=== PATIENT | female | born 1990 | race Caucasian/White ===

== ENCOUNTER 2017-01-26 07:38 | Inpatient (IN) | payer BC ==
[2017-01-26] MEDS ORDERED: Misoprostol TAB* 100 MCG VAGINAL ONE (09:25)
[2017-01-26] MEDS ORDERED: Misoprostol TAB* 100 MCG ONE (09:26)
[2017-01-26] MEDS ORDERED: diPHENhydraMINE PO* 50 MG PO PRN (22:42)
[2017-01-27] MEDS ORDERED: Lidocaine 1% MPF* 2 ML VIAL ONE (12:16)
[2017-01-27] MEDS ORDERED: OBEPIDURAL* 250 ML ONE (12:23)
[2017-01-27 12:37] LABS: Hematocrit 39 % (35-47); Hemoglobin 12.6 g/dl (12.0-16.0); Mean Corpuscular HGB Conc 33 g/dl (31-36); Mean Corpuscular Hemoglobin 28 pg (27-31); Mean Corpuscular Volume 86 fL (80-97); Mean Platelet Volume 12 um3 (7.4-10.4); Red Cell Distribution Width 14 % (10.5-15); White Blood Count 17.8 10^3/ul (3.5-10.8)
[2017-01-27] MEDS ORDERED: EPHEDrine (Pressors)* 50 MG/ML VIAL IV PUSH PRN (12:48)
[2017-01-27] MEDS ORDERED: Sodium Citrate/Citric Acid* 15 ML UDC PO PRN (12:48)
[2017-01-27] MEDS ORDERED: Phenylephrine IV* 40 MCG/ML 10 ML SYRINGE IV PUSH PRN (12:48)
[2017-01-27] MEDS ORDERED: Famotidine TAB* 20 MG PO PRN (12:48)
[2017-01-27 13:19] LABS: Albumin 3.5 g/dL (3.2-5.2); BUN/Creatinine Ratio 20.4 (8-20); Calcium 8.9 mg/dL (8.6-10.3); EGFR African American 174.2 (>60); EGFR Non-African American 135.4 (>60); Globulin 2.5 g/dL (2-4); Potassium 4.1 mmol/L (3.5-5.0); Total Bilirubin 0.3 mg/dL (0.2-1.0)
[2017-01-27] MEDS ORDERED: Acetaminophen TAB* 325 MG PO PRN (15:24)
[2017-01-27] MEDS ORDERED: Witch Hazel PAD* JAR TOPICAL PRN (15:24)
[2017-01-27] MEDS ORDERED: Dibucaine 1% 28.35 GM TUBE PR PRN (15:24)
[2017-01-27] MEDS ORDERED: Glycerin ADULT SUPP PR PRN (15:24)
[2017-01-27] MEDS: Ibuprofen TAB* 600 MG PO PRN (16:09)
[2017-01-27] MEDS ORDERED: Simethicone CHEW TAB* 80 MG PO SCH (17:30)
[2017-01-27] MEDS: Docusate CAP* 100 MG PO SCH (22:57)
[2017-01-28] MEDS: Ibuprofen TAB* 600 MG PO PRN ×2 (00:42→20:41)
[2017-01-28] MEDS ORDERED: Ferrous Gluconate TAB* 324 MG TAB PO SCH (09:00)
[2017-01-28] MEDS: Docusate CAP* 100 MG PO SCH ×3 (09:41→20:41)
[2017-01-28 10:34] LABS: Hematocrit 35 % (35-47); Hemoglobin 11.4 g/dl (12.0-16.0); Mean Corpuscular HGB Conc 32 g/dl (31-36); Mean Corpuscular Hemoglobin 28 pg (27-31); Mean Corpuscular Volume 86 fL (80-97); Mean Platelet Volume 11 um3 (7.4-10.4); Red Blood Count 4.07 10^6/ul (4.0-5.4); Red Cell Distribution Width 14 % (10.5-15); White Blood Count 13.1 10^3/ul (3.5-10.8)
[2017-01-28] MEDS: OBEPIDURAL* 250 ML EPIDURAL SCH (20:30)
[2017-01-29 08:21] VITALS: BP 132/73
--- NOTE | 2017-01-29 08:37 | PTEDU ---
Patient Name: ALOK MULTANI ALOK MULTANI selected video: Never Ever Shake a Baby to view on 01/29/2017 at 8:36:49 AM [id number]
--- NOTE | 2017-01-29 08:50 | PTEDU ---
Patient Name: ALOK MULTANI ALOK MULTANI selected video: Follow Me Mum: [facility] [place] [facility] Successful to view on at 8:49:37 AM from [id number]
== END 2017-01-29 14:00 | disposition home or self-care (01) | DRG 560 ==
LOC: MCHOBOUT 07:38 → MCHOB 08:14
PROVIDERS: ADMIT Midwife; ATTEND Midwife
PROC: 3E0P7GC Introduction of Other Therapeutic Substance into Female Reproductive, Via Natural or Artificial Opening (ICD-10-PCS; 2017-01-26)
PROC: 10907ZC Drainage of Amniotic Fluid, Therapeutic from Products of Conception, Via Natural or Artificial Opening (ICD-10-PCS; principal; 2017-01-27)
PROC: 10E0XZZ Delivery of Products of Conception, External Approach (ICD-10-PCS; 2017-01-27)
PROC: 4A1HXCZ Monitoring of Products of Conception, Cardiac Rate, External Approach (ICD-10-PCS; 2017-01-27)
DX: O13.4 Gestational [pregnancy-induced] hypertension without significant proteinuria, complicating childbirth (principal); O71.89 Other specified obstetric trauma; Z3A.39 39 weeks gestation of pregnancy; Z37.0 Single live birth
CPT/HCPCS: 36415; 80053; 85025; 86850; 86900; 86901; A9270-GY; S0191